=== PATIENT | male | born 2000 | race Caucasian/White ===

== ENCOUNTER 2018-10-16 17:39 | Emergency (ER) | payer OTHER | END 2018-10-16 18:13 | disposition home or self-care (01) | LOC: M ED 17:39 | DX: Z04.1 Encounter for examination and observation following transport accident (principal); V48.0XXA Car driver injured in noncollision transport accident in nontraffic accident, initial encounter; Y92.9 Unspecified place or not applicable; Y93.9 Activity, unspecified; Y99.9 Unspecified external cause status; Z72.0 Tobacco use | CPT/HCPCS: 99283 ==

== ENCOUNTER 2019-02-05 13:48 | Emergency (ER) | payer OTHER, SELFPAY ==
[~2019-02-05] VITALS: Ht 172.7 cm; Wt 63.6 kg
[2019-02-05] MEDS ORDERED: ACETAMINOPHEN TAB 650MG DOSE (2X325MG) PO ONE (14:15)
[2019-02-05 14:42] LABS: INFLUENZA A AMPLIFICATION POSITIVE (NEGATIVE); INFLUENZA B AMPLIFICATION NEGATIVE (NEGATIVE)
[2019-02-05] MEDS ORDERED: IBUPROFEN 800 MG TAB PO ONE (15:00)
[2019-02-05 15:32] VITALS: BP 107/58
== END 2019-02-05 15:36 | disposition home or self-care (01) ==
LOC: M ED 13:48
DX: J09.X9 Influenza due to identified novel influenza A virus with other manifestations (principal); F17.210 Nicotine dependence, cigarettes, uncomplicated

== ENCOUNTER 2019-03-23 22:30 | Emergency (ER) | payer OTHER ==
[~2019-03-23] VITALS: Ht 175.3 cm; Wt 65.5 kg
[2019-03-23 22:30] VITALS: BP 122/68
[2019-03-24] MEDS ORDERED: IBUPROFEN 800 MG TAB PO ONE
[2019-03-24] MEDS ORDERED: IBUP80TA PO (00:24)
== END 2019-03-24 00:27 | disposition home or self-care (01) ==
LOC: M ED 22:30
DX: R51 Headache (principal); S09.90XA Unspecified injury of head, initial encounter; W22.8XXA Striking against or struck by other objects, initial encounter; Y92.9 Unspecified place or not applicable; Y93.9 Activity, unspecified; Y99.9 Unspecified external cause status